=== PATIENT | male | born 1940 | race Caucasian/White ===

== ENCOUNTER 2022-09-26 22:16 | Inpatient (IN) | payer MEDICARE, BC ==
[2022-09-26] MEDS ORDERED: Acetaminophen 500 MG TAB ONE (23:32)
[2022-09-26 23:33] LABS: Hemoglobin 9.4 g/dL (13.5-17.5); Mean Corpuscular HGB CONC 32.2 g/dL (32.0-36.0); Mean Corpuscular Hemoglobin 29.9 pg (27.0-33.0); Mean Platelet Volume 9.7 fl (7.4-10.4); Platelet Count 379 10x3/uL (150-450); RBC Distribution Width 13.9 % (11.5-14.5); Red Blood Cell (RBC) Count 3.14 10x6/uL (4.32-5.72); White Blood Cell (WBC) Count 20.5 10x3/uL (3.5-10.5)
[2022-09-26 23:43] LABS: ALT (SGPT) 48 U/L (8-55); AST (SGOT) 64 U/L (5-34); Albumin 2.4 g/dL (3.4-4.8); Alkaline Phosphatase 349 U/L (40-110); Anion Gap 15 mmol/L (10-20); BUN (Urea Nitrogen) 35 mg/dL (8.4-25.7); Bilirubin, Total 0.7 mg/dL (0.2-1.2); Calc. Creatinine Clearance 0 mL/min (70-130); Calcium 8.2 mg/dL (7.8-10.44); Carbon Dioxide 21 mmol/L (23-31); Chloride 108 mmol/L (98-107); Estimated GFR 87; Globulin 2.3 g/dL (2.4-3.5); Glucose 143 mg/dL (83-110); Potassium 3.7 mmol/L (3.5-5.1); Protein, Total 4.7 g/dL (5.8-8.1); Sodium 140 mmol/L (136-145)
[2022-09-26 23:55] LABS: MDiff Complete? YES
[2022-09-27] LABS: Band 14 % (5-11); Lymphocytes 5 % (21-51); Metamyelocyte 1 % (0-0); Monocytes 3 % (0-10); Neutrophil 77 % (42-75)
[2022-09-27 00:02] LABS: Platelet Morphology Comment Appears Adequate; RBC Morphology Normal
[2022-09-27 00:06] LABS: CKMB 0.7 ng/mL (0-6.6)
[2022-09-27 02:17] LABS: SARS-CoV-2 NAA Rapid Test Not Detected (NotDetected)
[2022-09-27 02:25] LABS: Bilirubin Neg (Negative); Blood, Urine 10 (Negative); Clarity Slightly Cloudy (Clear); Glucose, Urine (Dipstick) Normal (Negative); Ketone, Urine Negative (Negative); Leukocyte Negative (Negative); Nitrite Negative (Negative); Protein, Urine (Dipstick) 30 mg/dl (Neg-Trace); Specific Gravity, Urine 1.015 (1.005-1.030)
[2022-09-27 02:35] LABS: Bacteria/HPF 1+ HPF (None Seen); RBC/HPF 0-3 HPF (0-3); Squamous Epithelial None Seen HPF (0-3); WBC/HPF 0-3 HPF (0-3)
[2022-09-27] MEDS ORDERED: Cefepime 2 GM VIAL ONE (03:16)
[2022-09-27] MEDS ORDERED: Vancomycin HCl 500 MG VIAL ONE (04:24)
[2022-09-27] MEDS ORDERED: Vancomycin 1 GM VIAL ONE (04:24)
[2022-09-27] MEDS ORDERED: Communication Order-Pharmacy FS ONE (05:25)
[2022-09-27] MEDS ORDERED: Milk Of Magnesia 30 ML UDCUP PO PRN (05:30)
[2022-09-27] MEDS ORDERED: Ondansetron ODT 4 MG TAB PO PRN (05:30)
[2022-09-27] MEDS ORDERED: Ondansetron PF 4 MG/2 ML Vial IVP PRN (05:30)
[2022-09-27] MEDS ORDERED: Lactated Ringer's 1,000 ML IV SCH (05:30)
[2022-09-27 06:31] LABS: Lipase 38 U/L (8-78); Magnesium 1.8 mg/dL (1.6-2.6)
[2022-09-27] MEDS ORDERED: Communication Order-Pharmacy FS PRN (07:01)
[2022-09-27] MEDS: Sodium Chloride 0.9% 1,000 ML IV SCH ×2 (07:32→15:31)
[2022-09-27 07:38] VITALS: BMI 23.6
[2022-09-27] MEDS: azaTHIOprine 50 MG TAB PO SCH ×2 (07:55→22:25)
[2022-09-27] MEDS: Calcium Carbonate 600 MG TAB PO SCH (07:55)
[2022-09-27] MEDS: Floranex 1 GM Packet PO SCH (07:55)
[2022-09-27] MEDS: Multivit, Therapeutic 1 TAB PO SCH (07:56)
[2022-09-27] MEDS: Magnesium Oxide 250 MG TAB PO SCH (07:56)
[2022-09-27] MEDS: Fish Oil 1,000 MG CAP PO SCH (07:56)
[2022-09-27] MEDS: Ubidecarenone 50 MG CAP PO SCH (07:56)
[2022-09-27] MEDS ORDERED: predniSONE 20 MG TAB ONE (08:00)
[2022-09-27] MEDS ORDERED: Enoxaparin Sodium 40 MG/0.4 ML SYRINGE ONE (08:00)
[2022-09-27] MEDS ORDERED: Carvedilol 12.5 MG TAB ONE (08:03)
[2022-09-27] MEDS ORDERED: Losartan Potassium 50 MG TAB ONE (08:03)
[2022-09-27] MEDS: Carvedilol 12.5 MG TAB PO SCH (08:15)
[2022-09-27] MEDS: Losartan Potassium 50 MG TAB PO SCH (08:16)
[2022-09-27] MEDS: predniSONE 20 MG TAB PO SCH (08:16)
[2022-09-27 14:10] LABS: Hemoglobin 9.7 g/dL (13.5-17.5); Mean Corpuscular HGB CONC 32.1 g/dL (32.0-36.0); Mean Corpuscular Hemoglobin 30.1 pg (27.0-33.0); Mean Corpuscular Volume 93.8 fl (81.2-95.1); Mean Platelet Volume 9.6 fl (7.4-10.4); Platelet Count 381 10x3/uL (150-450); RBC Distribution Width 13.8 % (11.5-14.5); Red Blood Cell (RBC) Count 3.22 10x6/uL (4.32-5.72); White Blood Cell (WBC) Count 26.6 10x3/uL (3.5-10.5)
[2022-09-27 14:15] LABS: ALT (SGPT) 43 U/L (8-55); AST (SGOT) 56 U/L (5-34); Albumin 2.2 g/dL (3.4-4.8); Alkaline Phosphatase 275 U/L (40-110); Anion Gap 14 mmol/L (10-20); BUN (Urea Nitrogen) 32 mg/dL (8.4-25.7); Bilirubin, Total 0.7 mg/dL (0.2-1.2); Calc. Creatinine Clearance 75 mL/min (70-130); Calcium 8.8 mg/dL (7.8-10.44); Carbon Dioxide 23 mmol/L (23-31); Chloride 108 mmol/L (98-107); Estimated GFR 88; Glucose 140 mg/dL (83-110); Magnesium 1.9 mg/dL (1.6-2.6); Phosphorus 4.4 mg/dL (2.3-4.7); Potassium 3.7 mmol/L (3.5-5.1); Protein, Total 5.2 g/dL (5.8-8.1); Sodium 141 mmol/L (136-145)
[2022-09-27 14:24] LABS: Band 18 % (5-11); Lymphocytes 3 % (21-51); Metamyelocyte 2 % (0-0); Monocytes 4 % (0-10); Reactive Lymphocytes 1 % (0-10)
[2022-09-27 14:25] LABS: Neutrophil 72 % (42-75)
[2022-09-27 14:29] LABS: Platelet Clumps MODERATE; Platelet Morphology Comment Appears Adequate
[2022-09-27 14:31] LABS: MDiff Complete? YES; RBC Morphology Normal
[2022-09-27] MEDS ORDERED: OCTAGAM 10% (10 GM/100 ML VIAL) IVPB SCH (14:45)
[2022-09-27] MEDS: Cefepime 2 GM in Sodium Chloride 0.9% 100 ML IVPB SCH ×2 (15:31→18:38)
[2022-09-27] MEDS ORDERED: Iopamidol 370 76% 100 ML VIAL ONE (15:37)
[2022-09-27] MEDS ORDERED: Magnevist 469MG/ML 20 ML VIAL ONE (15:47)
[2022-09-27] MEDS ORDERED: Vancomycin HCl 1.25 GM in Sodium Chloride 0.9% 250 ML 300 ML IVPB SCH (16:00)
[2022-09-27] MEDS: Vancomycin HCl 750 MG in Sodium Chloride 0.9% 250 ML 250 ML IVPB SCH (16:52)
[2022-09-27] MEDS: Dextrose 5 %-0.45 % NaCl 1,000 ML IV SCH (17:09)
[2022-09-27 19:34] LABS: Strep pneumo Urine Ag NEGATIVE (NEGATIVE)
[2022-09-27] MEDS: Carvedilol 6.25 MG TAB PO SCH (22:25)
[2022-09-27] MEDS: Pantoprazole 40 MG VIAL IVP SCH (22:25)
[2022-09-27] MEDS: Aspirin 81 mg Enteric Coated Tablet PO SCH (22:26)
[2022-09-27] MEDS: Atorvastatin Calcium 20 MG TAB PO SCH (22:27)
[2022-09-27] MEDS: Ezetimibe 10 MG TAB PO SCH (22:27)
[2022-09-28] MEDS: Cefepime 2 GM in Sodium Chloride 0.9% 100 ML IVPB SCH ×3 (03:31→20:45)
[2022-09-28] MEDS: Vancomycin HCl 750 MG in Sodium Chloride 0.9% 250 ML 250 ML IVPB SCH ×2 (04:27→17:27)
[2022-09-28 06:24] LABS: Hemoglobin 9.4 g/dL (13.5-17.5); Mean Corpuscular HGB CONC 32.4 g/dL (32.0-36.0); Mean Corpuscular Hemoglobin 30.2 pg (27.0-33.0); Mean Corpuscular Volume 93.2 fl (81.2-95.1); Mean Platelet Volume 9.9 fl (7.4-10.4); Platelet Count 377 10x3/uL (150-450); RBC Distribution Width 14.1 % (11.5-14.5); Red Blood Cell (RBC) Count 3.11 10x6/uL (4.32-5.72)
[2022-09-28 06:30] LABS: MDiff Complete? YES
[2022-09-28 06:41] LABS: Platelet Morphology Comment Appears Adequate; RBC Morphology Normal
[2022-09-28 06:51] LABS: INR-International Normal Ratio 1.2; PTT 34.5 sec (22.0-33.0); Prothrombin Time 13.2 sec (9.5-12.1)
[2022-09-28 07:00] LABS: ALT (SGPT) 33 U/L (8-55); AST (SGOT) 45 U/L (5-34); Albumin 2.1 g/dL (3.4-4.8); Alkaline Phosphatase 259 U/L (40-110); Anion Gap 17 mmol/L (10-20); BUN (Urea Nitrogen) 30 mg/dL (8.4-25.7); Bilirubin, Total 0.6 mg/dL (0.2-1.2); Calc. Creatinine Clearance 72 mL/min (70-130); Calcium 8.5 mg/dL (7.8-10.44); Carbon Dioxide 20 mmol/L (23-31); Chloride 110 mmol/L (98-107); Estimated GFR 87; Globulin 2.9 g/dL (2.4-3.5); Glucose 105 mg/dL (83-110); Potassium 3.8 mmol/L (3.5-5.1); Sodium 143 mmol/L (136-145)
[2022-09-28] MEDS: IMMUNE GLOBULIN IVPB SCH ×2 (08:24→08:25)
[2022-09-28] MEDS: ADMIXTURE FEE IVPB SCH ×2 (08:24→08:25)
[2022-09-28] MEDS ORDERED: Enoxaparin Sodium 40 MG/0.4 ML SYRINGE SC SCH (09:00)
[2022-09-28] MEDS ORDERED: Sodium Bicarbonate 2.5 MEQ/5 ML VIAL ONE (10:34)
[2022-09-28] MEDS ORDERED: Lidocaine 1% PF 5 ML VIAL ONE ×2 (10:34)
[2022-09-28] MEDS ORDERED: Fentanyl 100 MCG/2 ML VIAL ONE (10:57)
[2022-09-28] MEDS: Floranex 1 GM Packet PO SCH ×2 (15:33→15:46)
[2022-09-28] MEDS: Calcium Carbonate 600 MG TAB PO SCH (15:34)
[2022-09-28] MEDS: azaTHIOprine 50 MG TAB PO SCH ×2 (15:34→20:46)
[2022-09-28] MEDS: predniSONE 20 MG TAB PO SCH (15:34)
[2022-09-28] MEDS: Carvedilol 12.5 MG TAB PO SCH (15:35)
[2022-09-28] MEDS: Multivit, Therapeutic 1 TAB PO SCH (15:35)
[2022-09-28] MEDS: Ubidecarenone 50 MG CAP PO SCH (15:35)
[2022-09-28] MEDS: Fish Oil 1,000 MG CAP PO SCH (15:35)
[2022-09-28] MEDS: Losartan Potassium 50 MG TAB PO SCH (15:35)
[2022-09-28] MEDS: Magnesium Oxide 250 MG TAB PO SCH (15:39)
[2022-09-28] MEDS: Dextrose 5 %-0.45 % NaCl 1,000 ML IV SCH (16:06)
[2022-09-28 16:11] LABS: Vancomycin, Trough 9.6 ug/mL
[2022-09-28] MEDS ORDERED: Carvedilol 6.25 MG TAB ONE (20:26)
[2022-09-28] MEDS: Aspirin 81 mg Enteric Coated Tablet PO SCH (20:46)
[2022-09-28] MEDS: Atorvastatin Calcium 20 MG TAB PO SCH (20:46)
[2022-09-28] MEDS: Carvedilol 6.25 MG TAB PO SCH (20:46)
[2022-09-28] MEDS: Ezetimibe 10 MG TAB PO SCH (20:46)
[2022-09-28] MEDS: Enoxaparin Sodium 40 MG/0.4 ML SYRINGE SC SCH (20:47)
[2022-09-28] MEDS: Acetaminophen 325 MG TAB PO PRN (20:48)
[2022-09-28] MEDS: Pantoprazole 40 MG VIAL IVP SCH (20:56)
[2022-09-28] MEDS ORDERED: Vancomycin HCl 500 MG in Sodium Chloride 0.9% 100 ML IVPB SCH (21:00)
[2022-09-29] MEDS: Cefepime 2 GM in Sodium Chloride 0.9% 100 ML IVPB SCH (03:12)
[2022-09-29] MEDS ORDERED: Vancomycin HCl 1 GM in Sodium Chloride 0.9% 250 ML 250 ML IVPB SCH (05:00)
[2022-09-29 07:45] LABS: Hemoglobin 10.9 g/dL (13.5-17.5); Mean Corpuscular HGB CONC 31.9 g/dL (32.0-36.0); Mean Corpuscular Hemoglobin 30.3 pg (27.0-33.0); Mean Platelet Volume 10.4 fl (7.4-10.4); Platelet Count 326 10x3/uL (150-450); RBC Distribution Width 14.1 % (11.5-14.5)
[2022-09-29 07:46] LABS: MDiff Complete? YES
[2022-09-29 07:48] LABS: ALT (SGPT) 42 U/L (8-55); AST (SGOT) 75 U/L (5-34); Alkaline Phosphatase 213 U/L (40-110); Anion Gap 13 mmol/L (10-20); BUN (Urea Nitrogen) 30 mg/dL (8.4-25.7); Bilirubin, Total 0.7 mg/dL (0.2-1.2); Calc. Creatinine Clearance 77 mL/min (70-130); Calcium 8.1 mg/dL (7.8-10.44); Carbon Dioxide 20 mmol/L (23-31); Chloride 112 mmol/L (98-107); Estimated GFR 89; Globulin 2.8 g/dL (2.4-3.5); Glucose 155 mg/dL (83-110); Potassium 3.8 mmol/L (3.5-5.1); Protein, Total 4.8 g/dL (5.8-8.1); Sodium 141 mmol/L (136-145)
[2022-09-29] MEDS ORDERED: Piperacillin/Tazobactam 3.375 GM in Sodium Chloride 0.9% 100 ML IVPB SCH ×2 (08:15→09:00)
[2022-09-29 08:54] LABS: Band 3 % (5-11); Lymphocytes 3 % (21-51); Monocytes 3 % (0-10); Neutrophil 91 % (42-75); Platelet Morphology Comment Appears Adequate
[2022-09-29 08:58] LABS: Hypochromia SLIGHT = 6-15 cells (100X) (0-5/hpf); Polychromasia SLIGHT = 2-3 cells (100X) (0-2/hpf); Schistocytes SLIGHT = 2-5 cells (100X) (0-1/hpf)
[2022-09-29 09:10] LABS: Lymphocytes 5 % (21-51); Monocytes 2 % (0-10)
[2022-09-29 09:13] LABS: Band 5 % (5-11); Neutrophil 88 % (42-75)
[2022-09-29] MEDS: IMMUNE GLOBULIN IVPB SCH (09:52)
[2022-09-29] MEDS: ADMIXTURE FEE IVPB SCH (09:52)
[2022-09-29] MEDS: Losartan Potassium 50 MG TAB PO SCH (09:53)
[2022-09-29] MEDS: Carvedilol 12.5 MG TAB PO SCH (09:53)
[2022-09-29] MEDS: Calcium Carbonate 600 MG TAB PO SCH (09:54)
[2022-09-29] MEDS: Multivit, Therapeutic 1 TAB PO SCH (09:54)
[2022-09-29] MEDS: Magnesium Oxide 250 MG TAB PO SCH (09:54)
[2022-09-29] MEDS: azaTHIOprine 50 MG TAB PO SCH ×2 (09:54→22:23)
[2022-09-29] MEDS: Fish Oil 1,000 MG CAP PO SCH (09:54)
[2022-09-29] MEDS: Ubidecarenone 50 MG CAP PO SCH (09:54)
[2022-09-29] MEDS: predniSONE 20 MG TAB PO SCH (09:55)
[2022-09-29] MEDS: Dextrose 5 %-0.45 % NaCl 1,000 ML IV SCH (10:19)
[2022-09-29] MEDS: Floranex 1 GM Packet PO SCH (10:24)
[2022-09-29] MEDS ORDERED: Potassium Chloride 20 MEQ TAB PO SCH (13:00)
[2022-09-29] MEDS ORDERED: Amiodarone 200 MG TAB PO SCH (13:45)
[2022-09-29] MEDS ORDERED: Furosemide 20 MG/2 ML VIAL SLOW IVP SCH (17:15)
[2022-09-29] MEDS: Piperacillin/Tazobactam 3.375 GM in Sodium Chloride 0.9% 100 ML IVPB SCH ×2 (17:28→22:22)
[2022-09-29 20:49] LABS: HBSAg Index 0.21 S/CO (0-0.99); HIV (1/2) Antibody/Antigen Non-Reactive (NonReactive); HIV 1/2 INDEX 0.31 S/CO (<1.00); Hep B Surf Ag Non-Reactive S/CO (NonReactive)
[2022-09-29] MEDS ORDERED: Sodium Chloride 0.9% 100 ML ONE (22:13)
[2022-09-29] MEDS: Aspirin 81 mg Enteric Coated Tablet PO SCH (22:23)
[2022-09-29] MEDS: Atorvastatin Calcium 20 MG TAB PO SCH (22:23)
[2022-09-29] MEDS: Carvedilol 6.25 MG TAB PO SCH (22:23)
[2022-09-29] MEDS: Ezetimibe 10 MG TAB PO SCH (22:24)
[2022-09-29] MEDS: Enoxaparin Sodium 40 MG/0.4 ML SYRINGE SC SCH (22:24)
[2022-09-29] MEDS: Pantoprazole 40 MG VIAL IVP SCH (22:30)
[2022-09-30 05:15] LABS: Hemoglobin 9.1 g/dL (13.5-17.5); Mean Corpuscular HGB CONC 32.5 g/dL (32.0-36.0); Mean Corpuscular Volume 92.4 fl (81.2-95.1); Mean Platelet Volume 10.1 fl (7.4-10.4); Platelet Count 319 10x3/uL (150-450); RBC Distribution Width 14.1 % (11.5-14.5); Red Blood Cell (RBC) Count 3.03 10x6/uL (4.32-5.72); White Blood Cell (WBC) Count 26.4 10x3/uL (3.5-10.5)
[2022-09-30 05:19] LABS: ALT (SGPT) 88 U/L (8-55); AST (SGOT) 200 U/L (5-34); Albumin 1.8 g/dL (3.4-4.8); Alkaline Phosphatase 344 U/L (40-110); Anion Gap 11 mmol/L (10-20); BUN (Urea Nitrogen) 34 mg/dL (8.4-25.7); Bilirubin, Total 0.6 mg/dL (0.2-1.2); Calc. Creatinine Clearance 55 mL/min (70-130); Calcium 7.6 mg/dL (7.8-10.44); Carbon Dioxide 20 mmol/L (23-31); Chloride 112 mmol/L (98-107); Estimated GFR 66; Globulin 3.2 g/dL (2.4-3.5); Glucose 154 mg/dL (83-110); Potassium 4.1 mmol/L (3.5-5.1); Sodium 139 mmol/L (136-145)
[2022-09-30 06:00] LABS: MDiff Complete? YES
[2022-09-30 06:03] LABS: Band 4 % (5-11); Lymphocytes 2 % (21-51); Monocytes 4 % (0-10); Neutrophil 90 % (42-75)
[2022-09-30 06:04] LABS: Microcytosis SLIGHT = 6-15 cells (100X) (0-5/hpf)
[2022-09-30 06:05] LABS: Platelet Morphology Comment Appears Adequate
[2022-09-30] MEDS: Piperacillin/Tazobactam 3.375 GM in Sodium Chloride 0.9% 100 ML IVPB SCH ×3 (06:43→20:54)
[2022-09-30] MEDS: Multivit, Therapeutic 1 TAB PO SCH (10:10)
[2022-09-30] MEDS: Fish Oil 1,000 MG CAP PO SCH (10:10)
[2022-09-30] MEDS: Ubidecarenone 50 MG CAP PO SCH (10:11)
[2022-09-30] MEDS: Magnesium Oxide 250 MG TAB PO SCH (10:11)
[2022-09-30] MEDS: Carvedilol 12.5 MG TAB PO SCH (10:11)
[2022-09-30] MEDS: azaTHIOprine 50 MG TAB PO SCH ×2 (10:12→21:02)
[2022-09-30] MEDS: Amiodarone 200 MG TAB PO SCH (10:12)
[2022-09-30] MEDS: Losartan Potassium 50 MG TAB PO SCH (10:12)
[2022-09-30] MEDS: predniSONE 20 MG TAB PO SCH (10:13)
[2022-09-30] MEDS: ADMIXTURE FEE IVPB SCH (10:15)
[2022-09-30] MEDS: Floranex 1 GM Packet PO SCH (10:15)
[2022-09-30] MEDS: Calcium Carbonate 600 MG TAB PO SCH ×2 (10:15→10:19)
[2022-09-30] MEDS: IMMUNE GLOBULIN IVPB SCH (10:15)
[2022-09-30 13:22] LABS: Hep C IgG Ab Non-Reactive (NonReactive); Hep C Index 0.11 S/CO (0-0.79)
[2022-09-30 13:30] LABS: HBSAB Concentration 347.87 mIU/mL; Hep B Surf AB Reactive (NonReactive)
[2022-09-30] MEDS: Acetaminophen 325 MG TAB PO PRN ×2 (15:04→20:48)
[2022-09-30] MEDS: Carvedilol 6.25 MG TAB PO SCH (20:49)
[2022-09-30] MEDS: Aspirin 81 mg Enteric Coated Tablet PO SCH (20:49)
[2022-09-30] MEDS: Ezetimibe 10 MG TAB PO SCH (20:49)
[2022-09-30] MEDS: Atorvastatin Calcium 20 MG TAB PO SCH (20:50)
[2022-09-30] MEDS: Enoxaparin Sodium 40 MG/0.4 ML SYRINGE SC SCH (20:50)
[2022-09-30] MEDS: Pantoprazole 40 MG VIAL IVP SCH (21:08)
[2022-10-01] MEDS ORDERED: Piperacillin/Tazobactam 3.375 GM VIAL ONE (05:59)
[2022-10-01] MEDS ORDERED: Sodium Chloride 0.9% 100 ML ONE (05:59)
[2022-10-01] MEDS: Piperacillin/Tazobactam 3.375 GM in Sodium Chloride 0.9% 100 ML IVPB SCH ×3 (06:02→22:07)
[2022-10-01 07:09] LABS: ALT (SGPT) 129 U/L (8-55); AST (SGOT) 194 U/L (5-34); Albumin 1.8 g/dL (3.4-4.8); Alkaline Phosphatase 505 U/L (40-110); Anion Gap 13 mmol/L (10-20); BUN (Urea Nitrogen) 42 mg/dL (8.4-25.7); Bilirubin, Total 1.1 mg/dL (0.2-1.2); Calc. Creatinine Clearance 56 mL/min (70-130); Calcium 7.8 mg/dL (7.8-10.44); Carbon Dioxide 19 mmol/L (23-31); Chloride 111 mmol/L (98-107); Estimated GFR 66; Globulin 3.5 g/dL (2.4-3.5); Glucose 109 mg/dL (83-110); Hemoglobin 9.4 g/dL (13.5-17.5); Mean Corpuscular HGB CONC 32.8 g/dL (32.0-36.0); Mean Corpuscular Hemoglobin 30.1 pg (27.0-33.0); Mean Platelet Volume 10.6 fl (7.4-10.4); Platelet Count 260 10x3/uL (150-450); Potassium 3.6 mmol/L (3.5-5.1); Protein, Total 5.3 g/dL (5.8-8.1); RBC Distribution Width 14.3 % (11.5-14.5); Red Blood Cell (RBC) Count 3.12 10x6/uL (4.32-5.72); Sodium 139 mmol/L (136-145); White Blood Cell (WBC) Count 26.4 10x3/uL (3.5-10.5)
[2022-10-01 07:42] LABS: MDiff Complete? YES
[2022-10-01 07:44] LABS: Band 5 % (5-11); Lymphocytes 4 % (21-51); Metamyelocyte 3 % (0-0); Monocytes 4 % (0-10); Neutrophil 84 % (42-75)
[2022-10-01 07:46] LABS: Platelet Morphology Comment Appears Adequate; RBC Morphology Normal
[2022-10-01] MEDS: azaTHIOprine 50 MG TAB PO SCH ×2 (08:05→22:08)
[2022-10-01] MEDS: Carvedilol 12.5 MG TAB PO SCH (08:05)
[2022-10-01] MEDS: Losartan Potassium 50 MG TAB PO SCH (08:06)
[2022-10-01] MEDS: Ubidecarenone 50 MG CAP PO SCH (08:06)
[2022-10-01] MEDS: Multivit, Therapeutic 1 TAB PO SCH (08:07)
[2022-10-01] MEDS: predniSONE 20 MG TAB PO SCH (08:07)
[2022-10-01] MEDS: Fish Oil 1,000 MG CAP PO SCH (08:07)
[2022-10-01] MEDS: Calcium Carbonate 600 MG TAB PO SCH (08:07)
[2022-10-01] MEDS: Amiodarone 200 MG TAB PO SCH (08:08)
[2022-10-01] MEDS: Floranex 1 GM Packet PO SCH (08:09)
[2022-10-01] MEDS: Magnesium Oxide 250 MG TAB PO SCH (08:09)
[2022-10-01] MEDS ORDERED: Lactated Ringer's 1,000 ML IV SCH (14:30)
[2022-10-01] MEDS: Vancomycin HCl 750 MG in Sodium Chloride 0.9% 250 ML 250 ML IVPB SCH (19:51)
[2022-10-01] MEDS ORDERED: Vancomycin 1 GM in Premix Bag 1 BAG IVPB SCH (21:00)
[2022-10-01] MEDS: Aspirin 81 mg Enteric Coated Tablet PO SCH (22:07)
[2022-10-01] MEDS: Enoxaparin Sodium 40 MG/0.4 ML SYRINGE SC SCH (22:07)
[2022-10-01] MEDS: Acetaminophen 325 MG TAB PO PRN (22:08)
[2022-10-01] MEDS: Carvedilol 6.25 MG TAB PO SCH (22:08)
[2022-10-01] MEDS: Atorvastatin Calcium 20 MG TAB PO SCH (22:09)
[2022-10-01] MEDS: Ezetimibe 10 MG TAB PO SCH (22:10)
[2022-10-01] MEDS: Pantoprazole 40 MG VIAL IVP SCH (22:19)
[2022-10-02] MEDS: Piperacillin/Tazobactam 3.375 GM in Sodium Chloride 0.9% 100 ML IVPB SCH ×3 (06:20→22:35)
[2022-10-02] MEDS: Vancomycin HCl 750 MG in Sodium Chloride 0.9% 250 ML 250 ML IVPB SCH ×2 (06:20→18:40)
[2022-10-02 06:21] LABS: Hemoglobin 9.8 g/dL (13.5-17.5); Mean Corpuscular HGB CONC 32.2 g/dL (32.0-36.0); Mean Corpuscular Hemoglobin 29.6 pg (27.0-33.0); Mean Corpuscular Volume 91.8 fl (81.2-95.1); Mean Platelet Volume 10.5 fl (7.4-10.4); Platelet Count 213 10x3/uL (150-450); RBC Distribution Width 14.4 % (11.5-14.5); Red Blood Cell (RBC) Count 3.31 10x6/uL (4.32-5.72); White Blood Cell (WBC) Count 29.2 10x3/uL (3.5-10.5)
[2022-10-02 06:40] LABS: ALT (SGPT) 84 U/L (8-55); AST (SGOT) 91 U/L (5-34); Albumin 1.8 g/dL (3.4-4.8); Alkaline Phosphatase 475 U/L (40-110); Anion Gap 15 mmol/L (10-20); BUN (Urea Nitrogen) 45 mg/dL (8.4-25.7); Bilirubin, Total 0.8 mg/dL (0.2-1.2); Calc. Creatinine Clearance 60 mL/min (70-130); Calcium 7.8 mg/dL (7.8-10.44); Carbon Dioxide 18 mmol/L (23-31); Chloride 112 mmol/L (98-107); Estimated GFR 73; Globulin 3.2 g/dL (2.4-3.5); Glucose 118 mg/dL (83-110); Potassium 3.8 mmol/L (3.5-5.1); Sodium 141 mmol/L (136-145)
[2022-10-02 06:49] LABS: MDiff Complete? YES; Platelet Morphology Comment Appears Adequate
[2022-10-02 06:53] LABS: Band 10 % (5-11); Lymphocytes 6 % (21-51); Monocytes 7 % (0-10); Neutrophil 77 % (42-75)
[2022-10-02] MEDS: Magnesium Oxide 250 MG TAB PO SCH (10:02)
[2022-10-02] MEDS: predniSONE 20 MG TAB PO SCH (10:04)
[2022-10-02] MEDS: Amiodarone 200 MG TAB PO SCH (10:04)
[2022-10-02] MEDS: Ubidecarenone 50 MG CAP PO SCH (10:04)
[2022-10-02] MEDS: azaTHIOprine 50 MG TAB PO SCH ×2 (10:04→22:41)
[2022-10-02] MEDS: Multivit, Therapeutic 1 TAB PO SCH (10:04)
[2022-10-02] MEDS: Losartan Potassium 50 MG TAB PO SCH (10:05)
[2022-10-02] MEDS: Carvedilol 12.5 MG TAB PO SCH (10:05)
[2022-10-02] MEDS: Calcium Carbonate 600 MG TAB PO SCH (10:05)
[2022-10-02] MEDS: Fish Oil 1,000 MG CAP PO SCH (10:05)
[2022-10-02] MEDS: Floranex 1 GM Packet PO SCH (10:05)
[2022-10-02] MEDS ORDERED: Furosemide 20 MG/2 ML VIAL SLOW IVP SCH (14:15)
[2022-10-02] MEDS: Enoxaparin Sodium 40 MG/0.4 ML SYRINGE SC SCH (22:39)
[2022-10-02] MEDS: Aspirin 81 mg Enteric Coated Tablet PO SCH (22:40)
[2022-10-02] MEDS: Carvedilol 6.25 MG TAB PO SCH (22:40)
[2022-10-02] MEDS: Ezetimibe 10 MG TAB PO SCH (22:41)
[2022-10-02] MEDS: Atorvastatin Calcium 20 MG TAB PO SCH (22:41)
[2022-10-02] MEDS: Acetaminophen 325 MG TAB PO PRN (22:48)
[2022-10-02] MEDS: Pantoprazole 40 MG VIAL IVP SCH (22:55)
[2022-10-03] MEDS: Piperacillin/Tazobactam 3.375 GM in Sodium Chloride 0.9% 100 ML IVPB SCH ×3 (05:21→21:00)
[2022-10-03] MEDS: Vancomycin HCl 750 MG in Sodium Chloride 0.9% 250 ML 250 ML IVPB SCH (05:21)
[2022-10-03 07:15] LABS: Hemoglobin 9.9 g/dL (13.5-17.5); Mean Corpuscular HGB CONC 32.5 g/dL (32.0-36.0); Mean Corpuscular Hemoglobin 30.3 pg (27.0-33.0); Mean Corpuscular Volume 93.3 fl (81.2-95.1); Mean Platelet Volume 10.4 fl (7.4-10.4); Platelet Count 163 10x3/uL (150-450); RBC Distribution Width 14.6 % (11.5-14.5); Red Blood Cell (RBC) Count 3.27 10x6/uL (4.32-5.72); White Blood Cell (WBC) Count 35.2 10x3/uL (3.5-10.5)
[2022-10-03 07:19] LABS: Vancomycin, Trough 10.2 ug/mL
[2022-10-03 07:21] LABS: MDiff Complete? YES
[2022-10-03 07:30] LABS: ALT (SGPT) 72 U/L (8-55); AST (SGOT) 77 U/L (5-34); Albumin 1.7 g/dL (3.4-4.8); Alkaline Phosphatase 496 U/L (40-110); Anion Gap 15 mmol/L (10-20); BUN (Urea Nitrogen) 52 mg/dL (8.4-25.7); Bilirubin, Total 0.7 mg/dL (0.2-1.2); Calc. Creatinine Clearance 51 mL/min (70-130); Calcium 7.8 mg/dL (7.8-10.44); Carbon Dioxide 18 mmol/L (23-31); Chloride 112 mmol/L (98-107); Estimated GFR 60; Globulin 3.2 g/dL (2.4-3.5); Glucose 126 mg/dL (83-110); Protein, Total 4.9 g/dL (5.8-8.1); Sodium 141 mmol/L (136-145)
[2022-10-03 07:42] LABS: Band 8 % (5-11); Lymphocytes 6 % (21-51); Monocytes 4 % (0-10); Neutrophil 79 % (42-75); Reactive Lymphocytes 3 % (0-10)
[2022-10-03 07:43] LABS: Platelet Morphology Comment Appears Adequate
[2022-10-03 07:44] LABS: RBC Morphology Normal
[2022-10-03] MEDS: Vancomycin HCl 1 GM in Sodium Chloride 0.9% 250 ML 250 ML IVPB SCH ×2 (08:45→20:58)
[2022-10-03] MEDS: Floranex 1 GM Packet PO SCH (08:46)
[2022-10-03] MEDS: Calcium Carbonate 600 MG TAB PO SCH (08:47)
[2022-10-03] MEDS: Multivit, Therapeutic 1 TAB PO SCH (08:47)
[2022-10-03] MEDS: Carvedilol 12.5 MG TAB PO SCH (08:47)
[2022-10-03] MEDS: Ubidecarenone 50 MG CAP PO SCH (08:48)
[2022-10-03] MEDS: predniSONE 20 MG TAB PO SCH (08:48)
[2022-10-03] MEDS: Amiodarone 200 MG TAB PO SCH (08:49)
[2022-10-03] MEDS: Fish Oil 1,000 MG CAP PO SCH (08:49)
[2022-10-03] MEDS: Losartan Potassium 50 MG TAB PO SCH (08:49)
[2022-10-03] MEDS: Magnesium Oxide 250 MG TAB PO SCH (08:58)
[2022-10-03] MEDS: azaTHIOprine 50 MG TAB PO SCH ×2 (08:58→22:10)
[2022-10-03] MEDS ORDERED: Furosemide 20 MG/2 ML VIAL SLOW IVP SCH (09:00)
[2022-10-03 11:14] LABS: Bartonella henselae IgG Negative titer (Neg:<1:320); Bartonella henselae IgM Negative titer (Neg:<1:100); Bartonella quintana IgG Negative titer (Neg:<1:320); Bartonella quintana IgM Negative titer (Neg:<1:100)
[2022-10-03 12:24] LABS: SARS-CoV-2 NAA Rapid Test Not Detected (NotDetected)
[2022-10-03] MEDS: Carvedilol 6.25 MG TAB PO SCH (21:01)
[2022-10-03] MEDS: Aspirin 81 mg Enteric Coated Tablet PO SCH (21:01)
[2022-10-03] MEDS: Ezetimibe 10 MG TAB PO SCH (21:01)
[2022-10-03] MEDS: Pantoprazole 40 MG VIAL IVP SCH (21:01)
[2022-10-03] MEDS: Atorvastatin Calcium 20 MG TAB PO SCH (21:01)
[2022-10-03] MEDS: Acetaminophen 325 MG TAB PO PRN (21:02)
[2022-10-03] MEDS: Enoxaparin Sodium 40 MG/0.4 ML SYRINGE SC SCH (21:03)
[2022-10-04 02:40] VITALS: BP 134/63; TEMP 99.1
[2022-10-04 09:13] LABS: Brucella IgM Ab Negative (Negative)
== END 2022-10-04 03:00 | disposition short-term general hospital (02) | DRG 871 ==
LOC: CSHERS 22:16 → CSHERHOLD 09-27 06:18 → CSHTELE 09-27 15:31
PROVIDERS: ADMIT Family Medicine; ATTEND Internal Medicine
PROC: 3E03329 Introduction of Other Anti-infective into Peripheral Vein, Percutaneous Approach (ICD-10-PCS; 2022-09-27)
PROC: 0KBP3ZX Excision of Left Hip Muscle, Percutaneous Approach, Diagnostic (ICD-10-PCS; principal; 2022-09-28)
DX: A41.9 Sepsis, unspecified organism (principal); J18.9 Pneumonia, unspecified organism; J96.01 Acute respiratory failure with hypoxia; J69.0 Pneumonitis due to inhalation of food and vomit; D84.821 Immunodeficiency due to drugs; I50.32 Chronic diastolic (congestive) heart failure; I47.20 Ventricular tachycardia, unspecified; C49.9 Malignant neoplasm of connective and soft tissue, unspecified; G70.00 Myasthenia gravis without (acute) exacerbation; I25.10 Atherosclerotic heart disease of native coronary artery without angina pectoris; Z20.822 Contact with and (suspected) exposure to COVID-19; I45.10 Unspecified right bundle-branch block; R13.10 Dysphagia, unspecified; E78.2 Mixed hyperlipidemia; I11.0 Hypertensive heart disease with heart failure; I25.118 Atherosclerotic heart disease of native coronary artery with other forms of angina pectoris; R13.12 Dysphagia, oropharyngeal phase; Z79.82 Long term (current) use of aspirin; Z79.899 Other long term (current) drug therapy; Z95.1 Presence of aortocoronary bypass graft; Z79.84 Long term (current) use of oral hypoglycemic drugs; Z90.49 Acquired absence of other specified parts of digestive tract; Z98.890 Other specified postprocedural states; Z95.5 Presence of coronary angioplasty implant and graft
CPT/HCPCS: 36415; 36416; 70551; 71045; 71275; 74177; 74183; 74230; 77012; 80053; 80202; 81003; 81015; 82105; 82378; 82553; 83605; 83690; 83735; 83880; 84100; 84145; 84484; 85025; 85610; 85652; 85730; 86140; 86480; 86611; 86622; 86698; 86706; 86803; 87040; 87070; 87081; 87205; 87340; 87389; 87449; 87811; 87899; 88112; 88184; 88305; 88341; 88342; 93005; 93010; 93306; 94760; 96374; 96375; A9579; C9113; J0692; J1568; J1650; J1940; J2543; J3010; J3370; J3490; J7042; J7050; J7120; J7500; J7512; Q9967; U0002